=== PATIENT | female | born 1970 | race Two or more races ===

== ENCOUNTER 2020-02-11 10:22 | Emergency (ER) | payer BC, OTHER ==
[~2020-02-11] VITALS: Ht 167.6 cm; Wt 59.0 kg
[2020-02-11 11:10] LABS: BASOPHILS % 0.3 % (0.0-2.0); EOSINOPHILS % 2.5 % (0.0-5.0); HEMATOCRIT. 41.5 % (36.0-48.0); LYMPHOCYTES % 27.5 % (20.0-50.0); MEAN CORPUSCULAR HEMOGLOBIN 31.8 pg (28.0-32.0); MEAN CORPUSCULAR VOLUME 94.2 fL (81.0-99.0); MEAN PLATELET VOLUME 8.7 fl (7.4-10.4); MONOCYTES % 5.9 % (2.0-8.0); NEUTROPHILS % 63.8 % (40.0-76.0); PLATELET 263 x1000/uL (130-400); RED BLOOD CELL COUNT 4.41 mill/uL (4.2-5.4); RED CELL DISTRIBUTION WIDTH 12.6 % (11.6-14.6)
[2020-02-11] MEDS ORDERED: NITROGLYCERIN 0.4MG TABLET SL SL PRN (11:15)
[2020-02-11] MEDS ORDERED: ASPIRIN 81MG TABLET PO ONE (11:15)
[2020-02-11 11:16] LABS: CHLORIDE 106 mEq/L (98-107)
[2020-02-11 12:42] VITALS: BP 125/80
== END 2020-02-11 12:43 | disposition home or self-care (01) ==
LOC: ER 10:22 → CANBEDREQ 16:38
DX: R07.9 Chest pain, unspecified (principal); K58.9 Irritable bowel syndrome, unspecified
CPT/HCPCS: 36415; 71045; 80053; 83880; 84484; 85025; 93005; 93970; 99285